=== PATIENT | male | born 1990 | race Caucasian/White ===

== ENCOUNTER 2017-04-30 21:37 | Emergency (ER) | payer MEDICAID, OTHER ==
[~2017-04-30] VITALS: Ht 167.6 cm; Wt 102.3 kg
[2017-04-30 21:44] VITALS: Ht 167.6 cm; Wt 102.3 kg
--- NOTE | 2017-04-30 21:48 | ERA ---
ER Documentation Chief Complaint Date/Time DATE: 04/30/17 TIME: 21:48 Chief Complaint chest pain HPI The patient is a 27-year-old male, presenting to the ER because of substernal chest pain intermittently for the last 2 days, worse with eating. He ate hotdog and starches and coffee around 11 AM which made the symptom worse. He denies palpitation, chest pain with exertion of vomiting or diaphoresis. He denies fever, cough, neck pain, dyspnea, abdominal pain, vomiting with dysuria, diarrhea. He also complains of independent neck, left arm and left leg pain, worse with movement for 1 day. He denies smoking, drinks socially, denies illicit drug Past medical history: Hypertension Past surgical history cholecystectomy Family history: Negative for cardiac history ROS All systems reviewed and are negative except as per history of present illness. Medications Home Meds Active Scripts Ibuprofen* (Ibuprofen*) 600 Mg Tablet, 600 MG PO Q6, #20 TAB Prov:PACHECO ERAZO MD 05/01/17 Ondansetron (Ondansetron Odt) 4 Mg Tab.rapdis, 4 MG PO Q6H Y for NAUSEA AND/OR VOMITING, #10 TAB Prov:PACHECO ERAZO MD 05/01/17 Pantoprazole* (Protonix*) 40 Mg Tablet.dr, 40 MG PO DAILY, #20 TAB Prov:PACHECO ERAZO MD 05/01/17 Allergies Allergies: Coded Allergies: No Known Allergy (Verified , 04/30/17) PMhx/Soc History of Surgery: Yes (cholecystectomy) Anesthesia Reaction: No Hx Neurological Disorder: No Hx Respiratory Disorders: No Hx Cardiac Disorders: No Hx Psychiatric Problems: No Hx Miscellaneous Medical Probl: Yes (anxiety) Hx Alcohol Use: Yes (rarely) Hx Substance Use: No Hx Tobacco Use: No Smoking Status: Never smoker Physical Exam Vitals Vital Signs Date Time Temp Pulse Resp B/P Pulse Ox O2 Delivery O2 Flow Rate FiO2 05/01/17 02:09 98.2 71 17 131/77 98 Room Air 05/01/17 00:55 82 17 133/70 98 Room Air 04/30/17 21:44 98.2 77 18 98 Physical Exam Const: No acute distress. Anxious Head: Atraumatic. Eyes: Normal Conjunctiva. ENT: Normal External Ears, Nose and Mouth. Neck: Full range of motion. No meningismus. Resp: Clear to auscultation bilaterally. Cardio: Regular rate and rhythm. Abd: Soft, non distended, normal bowel sounds, non tender. Skin: No petechiae or rashes. Back: No midline or flank tenderness. Ext: No cyanosis, or edema. Neur: Awake and alert. No focal deficit Psych: Normal Mood and Affect. Results 24 hrs Current Medications Medications (Trade) Dose Ordered Sig/Katalina Route PRN Reason Start Time Stop Time Status Last Admin Dose Admin Ketorolac Tromethamine (Toradol) 60 mg ONCE STAT IM 04/30/17 21:59 04/30/17 22:00 DC 04/30/17 22:10 Pantoprazole (Protonix Tab) 40 mg ONCE ONCE PO 04/30/17 22:00 04/30/17 22:01 DC 04/30/17 22:10 Procedures/MDM EKG: Read by emergency physician Rate/Rhythm: Normal Sinus Rhythm 70 beats/min with sinus arrhythmia QRS, ST, T-waves: No ST elevation, no T inversion Impression: Abnormal EKG [place] [id number] Radiology Main Line: [phone] DIAGNOSTIC IMAGING REPORT Patient: GONZALO KRAMER : 1990 Age: 27 Sex: M MR #: [id number] DOS: 04/30/17 214 Ordering MD: PACHECO ERAZO MD Location: E/R Room/Bed: PROCEDURE: XR Chest. CLINICAL INDICATION: Chest pain. TECHNIQUE: Portable AP semi erect view of the chest was obtained. COMPARISON: 01/02/2010 FINDINGS: The cardiomediastinal silhouette is within normal limits. The lungs are clear. There is no evidence for pleural effusion, pneumothorax or pulmonary vascular congestion. The osseous structures are intact with no evidence for acute abnormality. RPTAT:HJJR IMPRESSION: No evidence for acute intrathoracic pathology. Physician Alison Date Time Electronically viewed and signed by Physician Alison on 04/30/2017 22:50 JR/ CC: PACHECO ERAZO MD MEDICAL MAKING DECISION: The patient is on 27-year-old male, presenting with acute chest discomfort of unclear etiology and nonspecific left leg and left arm myalgia. He was treated with Toradol 60 mg IM and Protonix 40 mg p.o. with good response I do not suspect ACS The differential diagnoses considered include but are not limited to acute coronary syndrome, acute myocardial infarction, pericarditis, pulmonary embolism , aortic dissection, pneumonia, pleural effusion, pneumothorax, GERD, chest wall pain. Departure Diagnosis: Primary Impression: Chest pain Condition: Good Comments I discussed the findings with the patient. I advised the patient to follow-up with the primary physician in about 1-2 days, sooner if needed and return if any concern. The patient's blood pressure was elevated (>120/80) but appears stable without evidence of hypertension emergency or urgency. The patient was counseled about the risks of hypertension and urged to pursue outpatient monitoring and therapy within a week with their primary care physician. PACHECO ERAZO MD Apr 30, 2017 21:48
[2017-04-30] MEDS ORDERED: KETOROLAC 60 MG INJ IM STA (21:59)
[2017-04-30] MEDS ORDERED: PANTOPRAZOLE (EC) 40 MG TAB PO ONE (22:00)
--- NOTE | 2017-04-30 22:50 | RADRPT ---
PROCEDURE: XR Chest. CLINICAL INDICATION: Chest pain. TECHNIQUE: Portable AP semi erect view of the chest was obtained. COMPARISON: 01/02/2010 FINDINGS: The cardiomediastinal silhouette is within normal limits. The lungs are clear. There is no evidenc e for pleural effusion, pneumothorax or pulmonary vascular congestion. The osseous structures are i ntact with no evidence for acute abnormality. RPTAT:HJJR IMPRESSION: No evidence for acute intrathoracic pathology. Physician Alison Date Time Electronically viewed and signed by Sony Alvarado Physician on 04/30/2017 22:50 /
[2017-05-01] MEDS ORDERED: PANT40TA3 PO (02:04)
[2017-05-01] MEDS ORDERED: IBUP-1542 PO (02:05)
[2017-05-01] MEDS ORDERED: ONDA4TAB14 PO (02:05)
[2017-05-01 02:09] VITALS: BP 131/77; PULSE 71; RESP 17; TEMP 98.2
== END 2017-05-01 02:10 | disposition home or self-care (01) ==
LOC: E/R 21:37
DX: R07.9 Chest pain, unspecified (principal); R40.2142 Coma scale, eyes open, spontaneous, at arrival to emergency department; R40.2252 Coma scale, best verbal response, oriented, at arrival to emergency department; R40.2362 Coma scale, best motor response, obeys commands, at arrival to emergency department
CPT/HCPCS: 71010; 93005; J1885; Z7610; 96372

== ENCOUNTER 2019-04-28 15:00 | Emergency (ER) | payer OTHER ==
[~2019-04-28] VITALS: Ht 175.3 cm; Wt 116.0 kg
[~2019-04-28 15:00] MED LIST: IBUP-1542 PO; ONDA4TAB14 PO; PANT40TA3 PO
[2019-04-28 15:05] VITALS: Ht 175.3 cm; Wt 116.0 kg
[2019-04-28 16:09] VITALS: BP 165/109; PULSE 66; RESP 20
--- NOTE | 2019-04-28 16:36 | ERD ---
ER Documentation Chief Complaint Chief Complaint high blood pressure; light headness ; headache HPI Patient is a 29-year-old male, past medical history of hypertension, noncompliant with hypertension medication, presents to the ER for concerns of a high blood pressure. Patient is brought in by EMS from home. Patient sister is a medical nurse states she took the patient's blood pressure prior to arrival. Patient's blood pressure was noted to be 180/120. This is concerning to the patient and his sister thus they called the urgent care hotline. Urgent care hotline nurse advised the patient to call EMS to be transported to the ER. Patient states that he has had numbness and tingling in his bilateral hands and feet for the last 2 weeks. Patient denies any unilateral weakness, slurred speech, difficulty ambulating. Patient denies any chest pain or shortness of breath. Patient denies any headache contrary to triage note. Patient has no visual changes. Patient denies any fevers, chills, neck pain or LOC. Patient denies abdominal pain or hematuria. Patient states that he is noncompliant with his hypertension medications given that he does not like the side effects associated with them. Patient does not recall the name of his hypertension medications he was prescribed over a year ago. ROS All systems reviewed and are negative except as per history of present illness. Medications Home Meds Active Scripts Ibuprofen* (Ibuprofen*) 600 Mg Tablet, 600 MG PO Q6, #20 TAB Prov:PACHECO ERAZO MD 05/01/17 Ondansetron (Ondansetron Odt) 4 Mg Tab.rapdis, 4 MG PO Q6H PRN for NAUSEA AND/OR VOMITING, #10 TAB Prov:PACHECO ERAZO MD 05/01/17 Pantoprazole* (Protonix*) 40 Mg Tablet.dr, 40 MG PO DAILY, #20 TAB Prov:PACHECO ERAZO MD 05/01/17 Allergies Allergies: Coded Allergies: No Known Allergy (Verified , 04/30/17) PMhx/Soc History of Surgery: Yes (cholecystectomy) Anesthesia Reaction: No Hx Neurological Disorder: No Hx Respiratory Disorders: No Hx Cardiac Disorders: No Hx Psychiatric Problems: No Hx Miscellaneous Medical Probl: Yes (anxiety) Hx Alcohol Use: Yes (rarely) Hx Substance Use: No Hx Tobacco Use: No Smoking Status: Never smoker FmHx Family History: No diabetes Physical Exam Vitals Vital Signs Date Temp Pulse Resp B/P (MAP) Pulse Ox O2 O2 Flow FiO2 Time Delivery Rate 04/28/19 66 20 165/109 99 Room Air 16:09 (127) 04/28/19 98.4 77 19 178/111 99 15:05 (133) Physical Exam GENERAL: Well-developed, well-nourished male. Appears in no acute distress. HEAD: Normocephalic, atraumatic. EYES: Pupils are equally reactive bilaterally. EOMs grossly intact. No conjunctival erythema. ENT: Moist mucous membranes. No uvula deviation. No kissing tonsils. NECK: Supple. No meningismus. Normal range of motion of the neck. LUNG: Clear to auscultation bilaterally. No rhonchi, wheezing, rales or coarse breath sounds. HEART: Regular rate and rhythm. No murmurs, rubs or gallops. Equal pulses in bilateral upper extremities. ABDOMEN: No scars, ecchymosis or rashes noted. Soft, nontender, and nondistended. Positive bowel sounds in all four quadrants. No rebound tenderness, no guarding. (-) McBurney's point tenderness. No CVA tenderness. BACK: No midline tenderness. EXTREMITIES: Equal pulses bilaterally. No peripheral clubbing, cyanosis or edema. No unilateral leg swelling. NEUROLOGIC: Alert and oriented x3, cooperative. Mood and affect appropriate to situation. Cranial nerves II through XII are grossly intact. Normal speech. Motor exam: 5/5 strength in upper and lower extremities. Sensory exam: Sensation intact to light touch on all four extremities. Cerebellar function exam: Rapid alternating movements intact. No dysmetria on [id number] and wulw-rt-[id number] test. Steady gait. No pronator drift SKIN: Normal color. Warm and dry. No rashes or lesions. Procedures/MDM ED COURSE: The patient was stable throughout ED course. I kept the patient and/or family informed of laboratory and diagnostic imaging results throughout the ED course. EKG: Read by Dr. Estrada, attending physician. EKG shows normal sinus rhythm at a rate of 72 bpm No arrhythmias, acute ST elevations or T wave changes were noted. MEDICAL DECISION MAKING: Patient is a 29-year-old male presents the ER for concerns of bilateral upper and lower extremity paresthesias as well as elevated blood pressure. Patient denied any chest pain, shortness of breath, headache, nausea, vomiting or LOC. Vital signs were reviewed. Patient is afebrile. Patient was not hypoxic. Patient was hemodynamically stable. Patient was ANO x3. Neuro exam was normal. EKG showed normal sinus rhythm. No ST elevations were noted. Patient's blood pressure was initially noted to be 178/111. Blood pressure was rechecked and was noted to be downtrending 165/109. Patient had no evidence of hypertensive emergency, or endorgan failure. Patient states he does have an appointment with his primary care physician in the next week. Patient was advised to contact his primary care physician and see if he can move his appointment up earlier. Patient was advised to keep a log of his blood pressure and show log to primary care physician. DISCHARGE: At this time, patient is stable for discharge and outpatient management. I have instructed the patient to follow-up with his/her primary care physician in 1-2 days. I have discussed with the patient the possibility of needing to see a specialist for further workup and imaging studies if symptoms persist. I have instructed the patient to promptly return to the ER for any new or worsening symptoms including increased pain, fever, nausea, vomiting, weakness or LOC. The patient and/or family expressed understanding of and agreement with this plan. All questions were answered. Home care instructions were provided. Patients blood pressure was elevated (>120/80) but appears stable without evidence of hypertensive emergency, hypertensive urgency or end-organ failure. I had discussion with the patient about the risks of hypertension. I have advised the patient to follow up with his/her primary care physician for outpatient monitoring and treatment for hypertension in 2-3 days. I have instructed the patient to return to the ER for any new or worsening symptoms including chest pain, shortness of breath, headache, blurred vision, confusion, nausea, vomiting or LOC. Disclaimer: Inadvertent spelling and grammatical errors are likely due to EHR/dictation software use and do not reflect on the overall quality of patient care. Also, please note that the electronic time recorded on this note does not necessarily reflect the actual time of the patient encounter. Departure Diagnosis: Primary Impression: Hypertension Hypertension type: unspecified Qualified Codes: I10 - Essential (primary) hypertension Condition: Fair Patient Instructions: High Blood Pressure (Hypertension) Referrals: [facility] (PCP) Additional Instructions: Follow up with your primary care physician at [facility] for further management of your blood pressure. Call your primary care doctor TOMORROW for an appointment during the next 1-2 days.See the doctor sooner or return here if your condition worsens before your appointment time. REJI ALARCON PA-C Apr 28, 2019 16:36
== END 2019-04-28 16:54 | disposition home or self-care (01) ==
LOC: FTE 15:00
DX: I10 Essential (primary) hypertension (principal)
CPT/HCPCS: 93005; Z7502